=== PATIENT | male | born 1940 | race Caucasian/White ===

== ENCOUNTER 2016-12-27 12:18 | Emergency (ER) | payer OTHER ==
[2016-12-27 12:45] LABS: BASOPHIL COUNT 0.1 K/uL (0-0.1); EOSINOPHIL (%) 0.6 % (0-5); EOSINOPHIL COUNT 0.1 K/uL (0-0.3); HEMATOCRIT 34.9 % (38.0-50.0); IMMATURE GRANULOCYTE (%) 0.9 % (0.0-0.7); IMMATURE GRANULOCYTE COUNT 0.1 K/uL; INSTRUMENT ABS NEUTROPHIL CT 5.6 K/uL; LYMPHOCYTE COUNT 1.6 K/uL (1.0-2.8); MCH 35.2 PG (29.0-34.0); MCHC 33.8 G/DL (30.0-36.0); MCV 104.2 FL (86-99); MEAN PLAT.VOLUME 8.6 uM^3 (9.0-12.4); MONOCYTE (%) 7.4 % (3-12); MONOCYTE COUNT 0.6 K/uL (0-0.8); NEUTROPHIL COUNT 5.6 K/uL (1.8-6.4); PLATELET COUNT 318 K/uL (156-360); RBC DIS.WIDTH-CV 12.9 % (11.8-14.6); RBC DIS.WIDTH-SD 49.4 % (39-53); RED BLOOD COUNT 3.35 M/uL (4.00-5.50)
[2016-12-27 12:53] LABS: AMYLASE 50 IU/L (1-118); CHLORIDE 103 mEq/L (99-109); POTASSIUM 4.1 mEq/L (3.7-5.4); SODIUM 135 mEq/L (136-147)
[2016-12-27 12:54] LABS: GLUCOSE 128 mg/dL (70-99)
[2016-12-27 12:56] LABS: ANION GAP 11 MEQ/L (2-14)
[2016-12-27 12:58] LABS: GFR ESTIMATE (CALCULATED) > 59 mL/min/; SERUM ETHYL ALCOHOL 202 mg/dL
[2016-12-27 12:59] LABS: UREA NITROGEN (BUN) 6 mg/dL (9-23)
[2016-12-27 13:01] LABS: LIPASE 34 U/L (1.0-51.0)
[2016-12-27 15:06] LABS: ADD MIUA? NO; BILIRUBIN NEGATIVE; BLOOD NEGATIVE; COLOR STRAW ((YELLOW)); GLUCOSE (STRIP) NEGATIVE; KETONES NEGATIVE; LEUKOCYTES NEGATIVE; NITRITE NEGATIVE; PROTEIN (STRIP) NEGATIVE; SPECIFIC GRAVITY 1.027 (1.000-1.030); UCUL ADDED? NO; UROBILINOGEN 0.2 MG/DL (0.2-1.0)
[2016-12-27 15:24] LABS: ADD MEDTOX COMMENT Y; AMPHETAMINE NEGATIVE (500 ng/mL); BARBITURATES NEGATIVE (200 ng/mL); BENZODIAZEPINES NEGATIVE (150 ng/mL); COCAINE NEGATIVE (150 ng/mL); INTERNAL CONTROLS VALID? YES; METHADONE NEGATIVE (200 ng/mL); METHAMPHETAMINE NEGATIVE (500 ng/mL); OPIATES (MORPHINE) PRESUMPTIVE POSITIVE (100 ng/mL); OXYCODONE NEGATIVE (100 ng/mL); PHENCYCLIDINE NEGATIVE (25 ng/mL); PROPOXYPHENE NEGATIVE (300 ng/mL); THC CANNABINOIDS NEGATIVE (50 ng/mL); TRICYCLIC ANTIDEPRESSANTS NEGATIVE (300 ng/mL)
== END 2016-12-27 16:08 | disposition short-term general hospital (02) ==
LOC: EME → TRA 12:18 → EME 12:18
PROVIDERS: Emergency Medicine
DX: S02.40CA Maxillary fracture, right side, initial encounter for closed fracture (principal); S02.40EA Zygomatic fracture, right side, initial encounter for closed fracture; S02.81XA Fracture of other specified skull and facial bones, right side, initial encounter for closed fracture; S02.0XXA Fracture of vault of skull, initial encounter for closed fracture; S01.111A Laceration without foreign body of right eyelid and periocular area, initial encounter; S42.291A Other displaced fracture of upper end of right humerus, initial encounter for closed fracture; S32.592A Other specified fracture of left pubis, initial encounter for closed fracture; S06.2X9A Diffuse traumatic brain injury with loss of consciousness of unspecified duration, initial encounter; H05.221 Edema of right orbit; V49.9XXA Car occupant (driver) (passenger) injured in unspecified traffic accident, initial encounter; X58.XXXA Exposure to other specified factors, initial encounter; Z23 Encounter for immunization; F10.129 Alcohol abuse with intoxication, unspecified; Y90.7 Blood alcohol level of 200-239 mg/100 ml
CPT/HCPCS: 70450; 70486; 71260; 72125; 72129; 72132; 73030; 74177; 80048; 81003; 82150; 83690; 84999; 85025; 86900; 86901; 93005; 99281; 99285; G0480; J1165; J2270; J2405; J7050